=== PATIENT | female | born 1945 | race Caucasian/White ===

== ENCOUNTER 2017-07-22 01:53 | Emergency (ER) | payer MEDICARE ==
[~2017-07-22] VITALS: Ht 165.1 cm; Wt 65.0 kg
[2017-07-22] VITALS (11 sets, daily range): BP systolic 92–186; BP diastolic 57–101; PULSE 86–121; RESP 18–22; TEMP 97.9–98.3; O2SAT 93–96
[~2017-07-22 01:53] MED LIST: Z.0.NO CURRENT MEDS
[2017-07-22] MEDS ORDERED: MORPHINE SULFATE 4 MG/ML INJ IV PUSH ONE ×2 (03:30→05:30)
[2017-07-22] MEDS ORDERED: SODIUM CHLORIDE 0.9% FLUSH 10 ML FLUSH IVF PRN (03:30)
[2017-07-22] MEDS ORDERED: ONDANSETRON HCL 4 MG/2 ML VIAL IV PUSH ONE (03:30)
--- NOTE | 2017-07-22 03:34 | PD ---
HPI Chief Complaint: Respiratory Symptoms Time Seen by Provider: 03:26 Travel History International Travel<30 days: No Contact w/Intl Traveler<30days: No Traveled to known affect area: No History of Present Illness HPI 71-year-old female presents to the emergency department by private transportation the care of her son for evaluation of sore throat cough congestion and near posttussive emesis. Patient states that she is reportedly in good health takes no prescription medications and had been feeling well until when she developed a sore throat this progressed and she was finally seen on Saturday morning at [facility] and diagnosed with strep throat. Patient was started on oral antibiotic and has taken 2 doses of antibiotic. Patient reports over the last hour she's had increasing congestion and throat pain and difficulty with clearing her secretions and producing white thick sputum that she's having difficulty clearing with cough. Patient denies choking on any medications. Patient has been able to handle her oral secretions. Patient denies fever or chills. Patient does not report chest pain. Patient does not report any stridor or hoarseness. Patient rates pain as severe with attempted swallowing. PFSH Past Medical History Narrative Medical Glaucoma appendectomy cholecystectomy; no tobacco use; nursing notes reviewed Glaucoma: Yes Menopausal: Yes Past Surgical History Appendectomy: Yes Cholecystectomy: Yes Social History Alcohol Use: No Tobacco Use: No Substance Use: No Allergies-Medications (Allergen,Severity, Reaction): Coded Allergies: No Known Allergies (Unverified , 02/02/13) Reported Meds & Prescriptions Reported Meds & Active Scripts Active Reported Tessalon Perles (Benzonatate) 100 Mg Cap 200 Mg PO TID PRN Amoxicillin 875 Mg Tab 875 Mg PO BID Review of Systems Except as stated in HPI: all other systems reviewed are Neg General / Constitutional: No: Fever, Chills HENT: Positive: Sore Throat, Congestion, No: Headaches, Neck Pain Cardiovascular: No: Chest Pain or Discomfort Respiratory: Positive: Cough, Shortness of Breath, No: Wheezing, Stridor Gastrointestinal: No: Vomiting, Abdominal Pain Genitourinary: No: Flank Pain Musculoskeletal: No: Myalgias, Arthralgias Skin: No Rash Neurologic: No: Weakness Psychiatric: Positive: Anxiety Hematologic/Lymphatic: No: Lymph Node Enlargement Physical Exam Narrative GENERAL: Well-developed well-nourished female in no acute distress no respiratory distress although intermittently coughing up white phlegm and saliva ; with hoarseness no stridor. SKIN: Warm and dry. HEAD: Normocephalic. EYES: No scleral icterus. No injection or drainage. ENT: Mucous membranes moist airway appears patent no posterior pharyngeal erythema edema or exudative change. Tympanic membranes no redness no dullness or loss of landmarks. NECK: Supple, trachea midline. No JVD or lymphadenopathy. CARDIOVASCULAR: Increased Regular rate and rhythm without murmurs, gallops, or rubs. RESPIRATORY: Breath sounds equal bilaterally. No accessory muscle use. GASTROINTESTINAL: Abdomen soft, non-tender, nondistended. MUSCULOSKELETAL: No cyanosis, or edema. BACK: Nontender without obvious deformity. No CVA tenderness. Data Data Last Documented VS Vital Signs Date Time Temp Pulse Resp B/P (MAP) Pulse Ox O2 Delivery O2 Flow Rate FiO2 07/22/17 06:59 105 18 93 Room Air 07/22/17 06:57 07/22/17 06:41 97.9 Orders Orders Complete Blood Count With Diff (07/22/17 03:26) Comprehensive Metabolic Panel (07/22/17 03:26) B-Type Natriuretic Peptide (07/22/17 03:26) Act Partial Throm Time (Ptt) (07/22/17 03:26) Prothrombin Time / Inr (Pt) (07/22/17 03:26) Troponin I (07/22/17 03:26) Iv Access Insert/Monitor (07/22/17 03:26) Ecg Monitoring (07/22/17 03:26) Oximetry (07/22/17 03:26) Oxygen Administration (07/22/17 03:26) Chest, Single Ap (07/22/17 03:26) Sodium Chloride 0.9% Flush (Ns Flush) (07/22/17 03:30) Ondansetron Inj (Zofran Inj) (07/22/17 03:30) Morphine Inj (Morphine Inj) (07/22/17 03:30) Blood Culture (07/22/17 03:26) Lactic Acid Sepsis Protocol (07/22/17 03:26) Lidocaine Pf 4% Neb (Lidocaine Pf 4% Neb (07/22/17 04:15) Sucralfate Liq (Carafate Liq) (07/22/17 05:00) Morphine Inj (Morphine Inj) (07/22/17 05:30) Pantoprazole Inj (Protonix Inj) (07/22/17 05:30) Ct Soft Tiss Neck W Iv Cont (07/22/17 ) Nitroglycerin Sl (Nitrostat Sl) (07/22/17 05:42) Iohexol 350 Inj (Omnipaque 350 Inj) (07/22/17 06:20) Ampicillin-Sulbactam Inj (Unasyn Inj) (07/22/17 07:15) Dexamethasone Inj (Decadron Inj) (07/22/17 07:15) Labs Laboratory Tests Test 07/22/17 03:55 White Blood Count 15.5 TH/MM3 Red Blood Count 4.88 MIL/MM3 Hemoglobin 14.3 GM/DL Hematocrit 43.5 % Mean Corpuscular Volume 89.2 FL Mean Corpuscular Hemoglobin 29.3 PG Mean Corpuscular Hemoglobin Concent 32.8 % Red Cell Distribution Width 11.5 % Platelet Count 415 TH/MM3 Mean Platelet Volume 8.2 FL Neutrophils (%) (Auto) 85.6 % Lymphocytes (%) (Auto) 7.1 % Monocytes (%) (Auto) 5.8 % Eosinophils (%) (Auto) 0.5 % Basophils (%) (Auto) 1.0 % Neutrophils # (Auto) 13.2 TH/MM3 Lymphocytes # (Auto) 1.1 TH/MM3 Monocytes # (Auto) 0.9 TH/MM3 Eosinophils # (Auto) 0.1 TH/MM3 Basophils # (Auto) 0.2 TH/MM3 CBC Comment DIFF FINAL Differential Comment Prothrombin Time 9.9 SEC Prothromb Time International Ratio 0.9 RATIO Activated Partial Thromboplast Time 23.8 SEC Blood Urea Nitrogen 17 MG/DL Creatinine 0.90 MG/DL Random Glucose 119 MG/DL Total Protein 7.7 GM/DL Albumin 3.4 GM/DL Calcium Level 8.9 MG/DL Alkaline Phosphatase 228 U/L Aspartate Amino Transf (AST/SGOT) 21 U/L Alanine Aminotransferase (ALT/SGPT) 25 U/L Total Bilirubin 0.4 MG/DL Sodium Level 140 MEQ/L Potassium Level 4.0 MEQ/L Chloride Level 107 MEQ/L Carbon Dioxide Level 24.6 MEQ/L Anion Gap 8 MEQ/L Estimat Glomerular Filtration Rate 62 ML/MIN Lactic Acid Level 1.2 mmol/L Troponin I LESS THAN 0.02 NG/ML B-Type Natriuretic Peptide 22 PG/ML MDM Medical Decision Making Medical Screen Exam Complete: Yes Emergency Medical Condition: Yes Medical Record Reviewed: Yes Interpretation(s) CBC & BMP Diagram 07/22/17 03:55 Total Protein 7.7, Albumin 3.4, Calcium Level 8.9, Alkaline Phosphatase 228 H, Aspartate Amino Transf (AST/SGOT) 21, Alanine Aminotransferase (ALT/SGPT) 25, Total Bilirubin 0.4 Vital Signs Date Time Temp Pulse Resp B/P (MAP) Pulse Ox O2 Delivery O2 Flow Rate FiO2 07/22/17 04:45 18 07/22/17 04:20 93 22 153/70 (97) 95 Room Air 07/22/17 03:25 96 22 170/96 (120) 95 Room Air 07/22/17 03:01 161/75 (103) 07/22/17 02:02 98.3 121 20 186/101 (129) 95 cxr: FINDINGS: A single view of the chest demonstrates the lungs to be symmetrically aerated without evidence of mass, infiltrate or effusion. Basilar atelectasis. The cardiomediastinal contours are unremarkable. Osseous structures are intact. CONCLUSION: 1. Mild basilar atelectasis. No effusion or pneumothorax. Kenan Contreras MD on July 22, 2017 at 3:53 Board Certified Radiologist. This report was verified electronically. ekg: Normal sinus rhythm rate [address] elevation injury pattern or ectopy noted CBC with automated differential leukocytosis 15,500 with left shift 85.6% otherwise values are normal range Coagulation studies are normal range Chest x-ray: No lobar infiltrate no vascular congestion basilar atelectasis no subdiaphragmatic; no free air noted Troponin I less than 0.02; BNP 22 not elevated Lactic acid 1.[address] soft tissue neck: FINDINGS: No neck mass identified except for 9 mm right lobe thyroid nodule.. No adenopathy. No abnormal fluid collections. No airway obstructing lesions or foreign bodies. No acute bony abnormalities identified. Extensive dental hardware are noted. CONCLUSION: 1. No acute findings on neck CT. Incidental 9 mm right lobe thyroid nodule. No airway lesions or foreign bodies are identified. Kenan Contreras MD on July 22, 2017 at 6:43 Board Certified Radiologist. This report was verified electronically. Differential Diagnosis Pharyngitis tracheitis laryngitis bronchitis pneumonia Narrative Course @ 4:45 patient experienced a vasovagal event complaining of epigastric pain which resolved; patient placed supine with immediate proven of blood pressure given a bolus of normal saline and EKG was performed which showed sinus rhythm no acute ST elevation or injury pattern change and symptoms resolved with IV fluid hydration also received a one-time dose of Carafate with symptom relief. Cardiac enzymes are normal range. After patient received Carafate symptoms resolved but then returned and patient given sublingual nitroglycerin 0.4 mg times one dose without symptom relief morphine sulfate 3 mg IV administered along with Protonix 40 mg IV Vital signs and normal range abdomen mild tenderness to palpation in the epigastric region. @ 6:[address] soft tissue neck resulted and shows no acute soft tissue swelling mass abscess or airway narrowing or process; thyroid nodule; patient has been informed of imaging results along with son at the bedside. Patient is aware that at this time based on her vital signs and CBC that she does meet SIRS criteria and is offered observation admission for ongoing IV fluids IV antibiotics anti-inflammatory medications and as needed updraft treatment. Patient does not want to be admitted and has only been on antibiotic as an outpatient times one day. Patient reports that she is markedly improved and is desirous of being discharged to home. At this point time patient does appear clinically stable for outpatient management and will give a trial of outpatient management on oral antibiotic along with medication for inflammation and for pain control. Sepsis Criteria SIRS Criteria (2 or more): WBC > 96610, < 4000 or > 10% bands Diagnosis Primary Impression: Pharyngitis Qualified Codes: J02.9 - Acute pharyngitis, unspecified Additional Impression: Odynophagia Referrals: Primary Care Physician 1 day Patient Instructions: Narcotic given in the ED, General Instructions Additional Instructions: Follow clear liquid diet 12-24 hours advance as tolerated to soft diet then to bland and then regular diet as tolerated Complete course of antibiotic as prescribed Follow-up with primary care provider call office in a.m. to schedule follow-up appointment Return to the emergency department for any concerns or change in condition Take pain medication as prescribed as needed be aware that it may cause drowsiness impair judgment delay reaction time increased risk for fall and cause constipation only use of pain greater than 5/[address] with this medication Take steroid taper as prescribed Monitor temperature every 4 hours with thermometer and take as needed acetaminophen/Tylenol every 4 hours for fever 100.4F or greater Med/Other Pt SpecificInfo: Prescription(s) given Scripts Ondansetron Odt (Zofran Odt) 4 Mg Tab 4 MG SL Q6HR Y for Nausea/Vomiting, #10 TAB 0 Refills Prov: Zulay Alcaraz MD 07/22/17 Hydrocodone-Acetaminophen (Lortab) 5-325 Mg Tab 1 TAB PO Q6H Y for PAIN, #7 TAB 0 Refills Prov: Zulay Alcaraz MD 07/22/17 Albuterol 8.5 GM Inh (Proair Hfa 8.5 GM Inh) 90 Mcg/Act Aer 2 PUFF INH Q4-6H Y for SHORTNESS OF BREATH, #1 INHALER 0 Refills 108 mcg/actuation Prov: Zulay Alcaraz MD 07/22/17 Methylprednisolone Dosepak (Medrol Dosepak) 4 Mg Dspk 4 MG PO DIRECTED, #1 DSPK 0 Refills Per Pharmacist direction Prov: Zluay Alcaraz MD 07/22/17 Disposition: 01 DISCHARGE HOME Condition: Stable Zulay Alcaraz MD Jul 22, 2017 03:34
--- NOTE | 2017-07-22 03:55 | RADRPT ---
EXAM DATE/TIME: 07/22/2017 03:33 [facility] COMPARISON: No previous studies available for comparison. INDICATIONS : Cough, congestion. MEDICAL HISTORY : None. SURGICAL HISTORY : None. ENCOUNTER: Initial ACUITY: 4 - 6 days PAIN SCORE: 0/10 LOCATION: Bilateral chest FINDINGS: A single view of the chest demonstrates the lungs to be symmetrically aerated without evidence of mas s, infiltrate or effusion. Basilar atelectasis. The cardiomediastinal contours are unremarkable. Os seous structures are intact. CONCLUSION: 1. Mild basilar atelectasis. No effusion or pneumothorax. Kenan Contreras MD on July 22, 2017 at 3:53 Board Certified Radiologist. This report was verified electronically.
[2017-07-22] MEDS ORDERED: RESP: LIDOCAINE HCL 4% PF 5 ML NEB NEB ONE (04:15)
[2017-07-22 04:27] LABS: AUTOMATED NEUTROPHIL # 13.2 TH/MM3 (1.8-7.7); BASOPHIL # 0.2 TH/MM3 (0-0.2); EOSINOPHIL # 0.1 TH/MM3 (0-0.4); EOSINOPHIL % 0.5 % (0.0-4.0); HEMATOCRIT 43.5 % (35.0-46.0); HEMO FLAGS DIFF FINAL; LYMPH % 7.1 % (9.0-44.0); LYMPHOCYTE # 1.1 TH/MM3 (1.0-4.8); MEAN CELL VOLUME 89.2 FL (80.0-100.0); MEAN CORPUSCULAR HEMOGLOBIN 29.3 PG (27.0-34.0); MEAN CORPUSCULAR HGB CONC 32.8 % (32.0-36.0); MONO % 5.8 % (0.0-8.0); NEUT % 85.6 % (16.0-70.0); PLATELET COUNT 415 TH/MM3 (150-450); RED BLOOD COUNT 4.88 MIL/MM3 (4.00-5.30); RED CELL DISTRIBUTION WIDTH 11.5 % (11.6-17.2); WHITE BLOOD COUNT 15.5 TH/MM3 (4.0-11.0)
[2017-07-22 04:34] LABS: CHLORIDE 107 MEQ/L (98-107); SODIUM (NA) 140 MEQ/L (136-145)
[2017-07-22] MEDS ORDERED: BENZ100 PO (04:36)
[2017-07-22] MEDS ORDERED: AMOX875T PO (04:36)
[2017-07-22 04:39] LABS: ANION GAP 8 MEQ/L (5-15); BICARBONATE 24.6 MEQ/L (21.0-32.0); BLOOD UREA NITROGEN 17 MG/DL (7-18)
[2017-07-22 04:40] LABS: APTT (PATIENT) 23.8 SEC (24.3-30.1); INTERNATIONAL NORMALIZED RATIO 0.9 RATIO; PROTHROMBIN TIME - PATIENT 9.9 SEC (9.8-11.6)
[2017-07-22 04:42] LABS: ALT (GPT) 25 U/L (10-53); AST (GOT) 21 U/L (15-37); GLOMERULAR FILTRATION RATE 62 ML/MIN (>89)
[2017-07-22 04:44] LABS: TOTAL BILIRUBIN ADULT 0.4 MG/DL (0.2-1.0)
[2017-07-22 04:45] LABS: ALKALINE PHOSPHATASE 228 U/L (45-117)
[2017-07-22] MEDS ORDERED: SUCRALFATE 1 GM/10 ML CUP PO ONE (05:00)
[2017-07-22] MEDS ORDERED: PANTOPRAZOLE SODIUM 40 MG VIAL IV PUSH ONE (05:30)
[2017-07-22] MEDS ORDERED: NITROGLYCERIN 0.4 MG SL 25 TABS/BTL SL ONE ×2 (05:42→06:00)
[2017-07-22] MEDS ORDERED: IOHEXOL 350 MG/ML 10 ML VIAL (for RAD DIAG) IVCONTRAST ONE (06:20)
--- NOTE | 2017-07-22 06:48 | RADRPT ---
EXAM DATE/TIME: 07/22/2017 06:20 [facility] COMPARISON: No previous studies available for comparison. INDICATIONS : Left neck pain. Difficulty swallowing. IV CONTRAST: 100 cc Omnipaque 350 (iohexol) IV RADIATION DOSE: 10.81 CTDIvol (mGy) MEDICAL HISTORY : Carcinoma, basal cell. SURGICAL HISTORY : Appendectomy. Cholecystectomy. ENCOUNTER: Initial ACUITY: 2 days PAIN SCALE: 10/10 LOCATION: Left neck TECHNIQUE: Volumetric scanning of the neck was performed. Using automated exposure control and adjustment of th e mA and/or kV according to patient size, radiation dose was kept as low as reasonably achievable to obtain optimal diagnostic quality images. DICOM format image data is available electronically for r eview and comparison. FINDINGS: No neck mass identified except for 9 mm right lobe thyroid nodule.. No adenopathy. No abnormal fluid collections. No airway obstructing lesions or foreign bodies. No acute bony abnormalities identified. Extensive dental hardware are noted. CONCLUSION: 1. No acute findings on neck CT. Incidental 9 mm right lobe thyroid nodule. No airway lesions or fore ign bodies are identified. Kenan Contreras MD on July 22, 2017 at 6:43 Board Certified Radiologist. This report was verified electronically.
[2017-07-22] MEDS ORDERED: MEDR4PAK PO (07:13)
[2017-07-22] MEDS ORDERED: ALBUAER3 INH (07:13)
[2017-07-22] MEDS ORDERED: HYDR-3533 PO (07:13)
[2017-07-22] MEDS ORDERED: ZOFR4TAB3 SL (07:13)
[2017-07-22] MEDS ORDERED: DEXAMETHASONE SOD PHOS 4 MG/ML VIAL IV PUSH ONE (07:15)
[2017-07-22] MEDS ORDERED: AMPICILLIN-SULBACTAM INJ 3 GM in SODIUM CHLORIDE 0.9% INJ 100 ML IV ONE (07:15)
--- NOTE | 2017-07-22 12:37 | EKG ---
Date Performed: 07/22/2017 Time Performed: 04:49:17 PTAGE: 71 years EKG: Sinus rhythm NORMAL ECG NO PREVIOUS TRACING DOCTOR: Ap Mckeon Interpretating Date/Time 07/22/2017 12:36:04
== END 2017-07-22 08:34 | disposition home or self-care (01) ==
LOC: PHED 01:53
DX: J02.9 Acute pharyngitis, unspecified (principal); R13.10 Dysphagia, unspecified; M54.2 Cervicalgia; E04.1 Nontoxic single thyroid nodule
CPT/HCPCS: 70491; 71010; 80053; 83605; 83880; 84484; 85025; 85610; 85730; 87040; 93005; 94664; 96365; 96375; 96376; 99285; C9113; J0295; J1100; J2270; J2405; Q9967